=== PATIENT | male | born 1955 | race Two or more races ===

== ENCOUNTER 2017-01-12 18:17 | Emergency (ER) | payer OTHER ==
[~2017-01-12] VITALS: Wt 77.2 kg
[2017-01-12] MEDS ORDERED: ACETAMINOPHEN 500 MG TAB PO STA (19:00)
[2017-01-12] MEDS ORDERED: LIDOCAINE 1% (MDV) 20 ML INJ SC ONE (19:00)
[2017-01-12] MEDS ORDERED: ACET1TAB40 PO (19:22)
[2017-01-12] MEDS ORDERED: DIPHTH/TET/ACEL PERTUSS (ADULT) 0.5 ML VIAL IM* ONE (19:30)
--- NOTE | 2017-01-12 19:31 | ERD ---
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 He has bleeding. He denies restricted range of motion weakness. His tetanus is not up-to-date. ROS All systems reviewed and are negative except as per history of present illness. Medications Home Meds Active Scripts Acetaminophen with Codeine (Acetaminophen-Cod #3 Tablet) 1 Each Tablet, 1 TAB PO Q6H Y for PAIN, #7 TAB Prov:AVILA STOCK MD 01/12/17 Allergies Allergies: Coded Allergies: No Known Drug Allergies (Verified Allergy, Unknown, 01/12/17) PMhx/Soc Medical and Surgical Hx: pt denies Medical Hx History of Surgery: Yes (DOUBLE HERNIA; RIGHT LEG SX.) Anesthesia Reaction: No Hx Neurological Disorder: No Hx Respiratory Disorders: No Hx Cardiac Disorders: No Hx Psychiatric Problems: No Hx Miscellaneous Medical Probl: No Hx Alcohol Use: No Hx Substance Use: No Hx Tobacco Use: No Smoking Status: Never smoker Physical Exam Vitals Vital Signs Date Time Temp Pulse Resp B/P Pulse Ox O2 Delivery O2 Flow Rate FiO2 01/12/17 18:20 98.8 82 20 160/85 98 Physical Exam Const: [] Alert, [id number]. Head: Atraumatic Eyes: Normal Conjunctiva ENT: Normal External Ears, Nose and Mouth. Neck: Full range of motion..~ No meningismus. Resp: Clear to auscultation bilaterally Cardio: Regular rate and rhythm, no murmurs Abd: Soft, non tender, non distended. Normal bowel sounds Skin: No petechiae or rashes Back: No midline or flank tenderness Ext: No cyanosis, or edema. There is approximately 2 cm laceration on the volar aspect of the left thumb MCP joint. There is no restricted range of motion or weakness or evidence of deficits. There is no erythema discharge Neur: Awake and alert Psych: Normal Mood and Affect Results 24 hrs Current Medications Medications (Trade) Dose Ordered Sig/Jose Maria Route PRN Reason Start Time Stop Time Status Last Admin Dose Admin Acetaminophen (Tylenol Tab) 500 mg ONCE STAT PO 01/12/17 19:00 01/12/17 19:01 01/12/17 19:05 Lidocaine (Xylocaine 1% (Mdv) 20 ml) 20 ml ONCE ONCE SC 01/12/17 19:00 01/12/17 19:01 Diphtheria/ Tetanus/Acell Pertussis (Adacel) 0.5 ml ONCE ONCE IM* 01/12/17 19:30 01/12/17 19:31 01/12/17 19:13 Procedures/MDM Patient was given a tetanus booster. Suspicion is very low for a foreign body given a knife injury and mechanism. There is no evidence of tendon or neurologic deficit. Procedure note-the left hand was irrigated copiously with normal saline. 3 cc of lidocaine was used for local infiltration. 4 5-0 nylon sutures were used to reapproximate the wound and the patient tolerated procedure well. The wound was dressed. Patient was discharged home with instructions for wound check in 2 days and suture removal approximately 10 days. Should return sooner for fevers, redness , new symptoms. Departure Diagnosis: Primary Impression: Laceration Condition: Stable Patient Instructions: Laceration, Hand Additional Instructions: 2 days wound check for infection and 10 days suture removal. Recheck sooner for fevers, redness, new or worsening symptoms. AVILA STOCK MD Jan 12, 2017 19:31
== END 2017-01-12 19:32 | disposition home or self-care (01) ==
LOC: FTE 18:17
DX: S61.012A Laceration without foreign body of left thumb without damage to nail, initial encounter (principal); W26.0XXA Contact with knife, initial encounter; Y92.9 Unspecified place or not applicable; Z23 Encounter for immunization
CPT/HCPCS: 90471; 90715

== ENCOUNTER 2018-09-16 15:09 | Inpatient (IN) | END 2018-09-22 23:42 | disposition left against medical advice (07) | DRG 233 ==